=== PATIENT | male | born 1980 | race Caucasian/White ===

== ENCOUNTER 2017-07-14 16:20 | Emergency (ER) | payer SELFPAY ==
[~2017-07-14] VITALS: Ht 185.4 cm; Wt 84.1 kg
[2017-07-14 17:02] VITALS: BP 139/82; PULSE 76; RESP 16; TEMP 98; O2SAT 97
[2017-07-14 18:40] LABS: BILIRUBIN, URINE NEG (NEG); BLOOD, URINE NEG (NEG); GLUCOSE,URINE NEG (NEG); KETONE, URINE NEG (NEG); NITRITE,URINE NEG (NEG); PH, URINE 5.5 (5.0-8.5); URINE COLOR YELLOW (YELLW/STRAW); URINE LEUKOCYTE ESTERASE NEG (NEG)
[2017-07-14] MEDS ORDERED: ALBU2TAB4 PO (18:42)
--- NOTE | 2017-07-14 18:48 | PD ---
HPI Chief Complaint: GI Complaint Time Seen by Provider: 18:35 Travel History International Travel<30 days: No Contact w/Intl Traveler<30days: No Traveled to known affect area: No History of Present Illness HPI 37-year-old male reports nausea and vomiting today. He had to leave work due to the symptoms and arrives here per part of work protocol. He has no fever. He believes he ate some spoiled food which is causing the nausea and vomiting. He denies abdominal pain. Duration about 6 or 7 hours. Patient denies drug alcohol abuse. History Past Medical Histgory Tetanus Vaccination: < 5 Years Social History Alcohol Use: No Tobacco Use: Yes Allergies-Medications (Allergen,Severity, Reaction): Coded Allergies: No Known Allergies (Unverified , 07/14/17) Reported Meds & Prescriptions Reported Meds & Active Scripts Active Reported Albuterol (Albuterol Sulfate) 2 Mg Tab 2 Mg PO TID Review of Systems Except as stated in HPI: all other systems reviewed are Neg General / Constitutional: No: Fever Physical Exam Narrative GENERAL: Pleasant well-nourished well-developed 37-year-old male no acute distress Vital Signs Date Time Temp Pulse Resp B/P (MAP) Pulse Ox O2 Delivery O2 Flow Rate FiO2 07/14/17 17:02 98.0 76 16 139/82 (101) 97 SKIN: Warm and dry. HEAD: Atraumatic. Normocephalic. EYES: Pupils equal and round. No scleral icterus. No injection or drainage. ENT: No nasal bleeding or discharge. Mucous membranes pink and moist. NECK: Trachea midline. No JVD. CARDIOVASCULAR: Regular rate and rhythm. RESPIRATORY: No accessory muscle use. Clear to auscultation. Breath sounds equal bilaterally. GASTROINTESTINAL: Abdomen soft, non-tender, nondistended. Hepatic and splenic margins not palpable. MUSCULOSKELETAL: Extremities without clubbing, cyanosis, or edema. No obvious deformities. NEUROLOGICAL: Awake and alert. No obvious cranial nerve deficits. Motor grossly within normal limits. Five out of 5 muscle strength in the arms and legs. Normal speech. PSYCHIATRIC: Appropriate mood and affect; insight and judgment normal. Data Data Last Documented VS Vital Signs Date Time Temp Pulse Resp B/P (MAP) Pulse Ox O2 Delivery O2 Flow Rate FiO2 07/14/17 17:02 98.0 76 16 139/82 (101) 97 Orders Orders Urinalysis - C+S If Indicated (07/14/17 18:25) Labs Laboratory Tests Test 07/14/17 17:45 [facility] Medical Screen Exam Complete: Yes Emergency Medical Condition: No Narrative Course A medical screening exam was performed: At the time of evaluation the presenting medical condition was determined not to be of an emergent nature. The patient was given the option of receiving additional care, but declined. Patient was given options for additional community resources from which to obtain care. The Patient Has Been advised to seek medical attention for their presenting complaint. The patient has been advised to return to the ER at any time if an emergent condition develops. Primary Impression: Encounter for medical screening examination Departure Forms: Tests/Procedures, Work Release Enter return to work date: Jul 16, 2017 Special Instructions: OK TO RETURN TO WORK ON SundayJuly. Med/Other Pt SpecificInfo: No Change to Meds Disposition: 01 DISCHARGE HOME Condition: Gerald Morse MD Jul 14, 2017 18:48
[2017-07-14 19:01] LABS: RBC, URINE 0-2 /hpf (0-3); SQUAMOUS EPITHELIAL CELL URINE 0-5 /hpf (0-5); WBC, URINE 0-2 /hpf (0-5)
== END 2017-07-14 18:57 | disposition home or self-care (01) ==
LOC: PHED 16:20
DX: R11.2 Nausea with vomiting, unspecified (principal); Z72.0 Tobacco use
CPT/HCPCS: 81001; 99281